=== PATIENT | female | born 1995 | race Caucasian/White ===

== ENCOUNTER 2017-05-09 19:23 | Emergency (ER) ==
[2017-05-09 19:26] VITALS: BP 138/83; TEMP 99.5; BMI 25.0
[2017-05-09 19:52] LABS: SERUM PREGNANCY INTERNAL QC INTERNAL QC VALID
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
== END 2017-05-09 21:00 | disposition home or self-care (01) ==
LOC: ED 19:23
DX: S16.1XXA Strain of muscle, fascia and tendon at neck level, initial encounter (principal); S46.911A Strain of unspecified muscle, fascia and tendon at shoulder and upper arm level, right arm, initial encounter; V89.2XXA Person injured in unspecified motor-vehicle accident, traffic, initial encounter
CPT/HCPCS: 36415; 84703; 99283